=== PATIENT | male | born 1995 | race Caucasian/White ===

== ENCOUNTER 2018-04-06 17:00 | Emergency (ER) | payer SELFPAY ==
--- NOTE | 2018-04-06 17:03 | ER Report ---
History and Physical Time Seen By MD: 17:04 HPI/ROS CHIEF COMPLAINT: Depression HISTORY OF PRESENT ILLNESS: 22-year-old male patient presents to emergency room with complaint of alcohol intoxication. Patient was brought by the [facility]. Patient had been drinking excessively prior to football game and then again at the football game. He is brought in for nursing home clearance with public intoxication. Patient states that he's been having a hard time for the past year. He states that he "feels like he is not living up". 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 He denies having any difficulties with significant other. He states that he has had problems for the past year with depression and has had a couple of thoughts of suicidal ideation during that time. He states that he does not have a plan at this time. He states he would like to be admitted to behavioral health for help. REVIEW OF SYSTEMS: Respiratory: No cough, no dyspnea. Cardiovascular: No chest pain, no palpitations. Gastrointestinal: No vomiting, no abdominal pain. Musculoskeletal: No back pain. Allergies: Coded Allergies: No Known Drug Allergies (Unverified , 04/06/18) Home Meds No Active Prescriptions or Reported Meds Past Medical/Surgical History Patient has a past medical history of alcohol abuse, 9-12 beers on the weekends. Patient denies any surgical history. Reviewed Nurses Notes: Yes Hx Substance Use Disorder: No Hx Alcohol Use: Yes (9-12 ON WEEKENDS) Constitutional Vital Sign - Last 24 Hours 04/06/18 04/06/18 17:01 19:03 Temp 98.1 Pulse 100 92 Resp 14 12 B/P (MAP) 128/100 129/76 (93) Pulse Ox 94 93 O2 Delivery Room Air Room Air Physical Exam General Appearance: The patient is alert, has no immediate need for airway protection and no current signs of toxicity. Respiratory: Chest is non tender, lungs are clear to auscultation. Cardiac: regular rate and rhythm Gastrointestinal: Abdomen is soft and non tender, no masses, bowel sounds normal. Musculoskeletal: Neck: Neck is supple and non tender. Extremities have full range of motion and are non tender. Skin: No rashes or lesions. Psych: Patient maintains good eye contact, history speech is slow. At times he does become tearful. DIFFERENTIAL DIAGNOSIS: After history and physical exam differential diagnosis was considered for depression, suicidal ideation, alcohol intoxication. Medical Decision Making Data Points Result Diagram: 04/06/18 1732 04/06/18 1732 Laboratory Hematology Test 04/06/18 17:32 04/06/18 18:18 Red Blood Count 5.95 M/uL (4.00-5.60) Mean Corpuscular Volume 88.3 fL (80.0-96.0) Mean Corpuscular Hemoglobin 31.3 pg (26.0-33.0) Mean Corpuscular Hemoglobin Concent 35.5 g/dL (32.0-36.0) Red Cell Distribution Width 13.5 % (11.5-14.5) Mean Platelet Volume 9.3 fL (7.2-11.1) Neutrophils (%) (Auto) 50.0 % (39.4-72.5) Lymphocytes (%) (Auto) 42.5 % (17.6-49.6) Monocytes (%) (Auto) 5.7 % (4.1-12.4) Eosinophils (%) (Auto) 1.3 % (0.4-6.7) Basophils (%) (Auto) 0.5 % (0.3-1.4) Nucleated RBC Relative Count (auto) 0.0 /100WBC Neutrophils # (Auto) 3.4 K/uL (2.0-7.4) Lymphocytes # (Auto) 2.9 K/uL (1.3-3.6) Monocytes # (Auto) 0.4 K/uL (0.3-1.0) Eosinophils # (Auto) 0.1 K/uL (0.0-0.5) Basophils # (Auto) 0.0 K/uL (0.0-0.1) Nucleated RBC Absolute Count (auto) 0.00 K/uL Sodium Level 147 mmol/L (137-145) Potassium Level 4.1 mmol/L (3.5-5.0) Chloride Level 107 mmol/L (98-107) Carbon Dioxide Level 24 mmol/L (22-30) Blood Urea Nitrogen 14 mg/dl (9-21) Creatinine 1.20 mg/dl (0.66-1.25) Glomerular Filtration Rate Calc > 60.0 Random Glucose 102 mg/dl (75-110) Calcium Level 9.5 mg/dl (8.4-10.2) Magnesium Level 2.3 mg/dl (1.7-2.2) Total Bilirubin 0.4 mg/dl (0.2-1.3) Aspartate Amino Transf (AST/SGOT) 24 U/L (0-35) Alanine Aminotransferase (ALT/SGPT) 35 U/L (0-56) Alkaline Phosphatase 58 U/L (0-126) Total Protein 8.2 g/dl (6.3-8.2) Albumin 5.0 g/dl (3.5-5.0) Salicylates Level < 10 mg/L Salicylate Last Dose Date unk Acetaminophen Level < 10 ug/ml Serum Alcohol 222 mg/dl Urine Color Straw Urine Clarity Clear Urine pH 5.0 pH (4.8-9.5) Urine Specific [place] 1.004 Urine Protein Negative mg/dL (NEGATIVE) Urine Glucose (UA) Negative mg/dL (NEGATIVE) Urine Ketones Negative mg/dL (NEGATIVE) Urine Blood Negative (NEGATIVE) Urine Nitrite Negative (NEGATIVE) Urine Bilirubin Negative (NEGATIVE) Urine Urobilinogen Negative mg/dL (0.2-1.9) Urine Leukocyte Esterase Negative (NEGATIVE) Urine RBC None /HPF (0-2/HPF) Urine WBC None /HPF (0-5/HPF) Urine Squamous Epithelial Cells None /LPF (</=FEW) Urine Bacteria Negative /HPF (NONE-FEW) Urine Mucus None /HPF (NONE-FEW) Urine Opiates Screen Negative Urine Barbiturates Screen Negative Ur Tricyclic Antidepressants Screen Negative Urine Phencyclidine Screen Negative Urine Amphetamines Screen Negative Urine Benzodiazepines Screen Negative Urine Cocaine Screen Negative Urine Cannabinoids Screen Negative Chemistry Test 04/06/18 17:32 04/06/18 18:18 White Blood Count 6.8 k/uL (4.5-11.0) Red Blood Count 5.95 M/uL (4.00-5.60) Hemoglobin 18.6 g/dL (14.0-18.0) Hematocrit 52.5 % (42.0-52.0) Mean Corpuscular Volume 88.3 fL (80.0-96.0) Mean Corpuscular Hemoglobin 31.3 pg (26.0-33.0) Mean Corpuscular Hemoglobin Concent 35.5 g/dL (32.0-36.0) Red Cell Distribution Width 13.5 % (11.5-14.5) Platelet Count 216 K/uL (150-450) Mean Platelet Volume 9.3 fL (7.2-11.1) Neutrophils (%) (Auto) 50.0 % (39.4-72.5) Lymphocytes (%) (Auto) 42.5 % (17.6-49.6) Monocytes (%) (Auto) 5.7 % (4.1-12.4) Eosinophils (%) (Auto) 1.3 % (0.4-6.7) Basophils (%) (Auto) 0.5 % (0.3-1.4) Nucleated RBC Relative Count (auto) 0.0 /100WBC Neutrophils # (Auto) 3.4 K/uL (2.0-7.4) Lymphocytes # (Auto) 2.9 K/uL (1.3-3.6) Monocytes # (Auto) 0.4 K/uL (0.3-1.0) Eosinophils # (Auto) 0.1 K/uL (0.0-0.5) Basophils # (Auto) 0.0 K/uL (0.0-0.1) Nucleated RBC Absolute Count (auto) 0.00 K/uL Glomerular Filtration Rate Calc > 60.0 Calcium Level 9.5 mg/dl (8.4-10.2) Magnesium Level 2.3 mg/dl (1.7-2.2) Total Bilirubin 0.4 mg/dl (0.2-1.3) Aspartate Amino Transf (AST/SGOT) 24 U/L (0-35) Alanine Aminotransferase (ALT/SGPT) 35 U/L (0-56) Alkaline Phosphatase 58 U/L (0-126) Total Protein 8.2 g/dl (6.3-8.2) Albumin 5.0 g/dl (3.5-5.0) Salicylates Level < 10 mg/L Salicylate Last Dose Date unk Acetaminophen Level < 10 ug/ml Serum Alcohol 222 mg/dl Urine Color Straw Urine Clarity Clear Urine pH 5.0 pH (4.8-9.5) Urine Specific [place] 1.004 Urine Protein Negative mg/dL (NEGATIVE) Urine Glucose (UA) Negative mg/dL (NEGATIVE) Urine Ketones Negative mg/dL (NEGATIVE) Urine Blood Negative (NEGATIVE) Urine Nitrite Negative (NEGATIVE) Urine Bilirubin Negative (NEGATIVE) Urine Urobilinogen Negative mg/dL (0.2-1.9) Urine Leukocyte Esterase Negative (NEGATIVE) Urine RBC None /HPF (0-2/HPF) Urine WBC None /HPF (0-5/HPF) Urine Squamous Epithelial Cells None /LPF (</=FEW) Urine Bacteria Negative /HPF (NONE-FEW) Urine Mucus None /HPF (NONE-FEW) Urine Opiates Screen Negative Urine Barbiturates Screen Negative Ur Tricyclic Antidepressants Screen Negative Urine Phencyclidine Screen Negative Urine Amphetamines Screen Negative Urine Benzodiazepines Screen Negative Urine Cocaine Screen Negative Urine Cannabinoids Screen Negative Toxicology Test 04/06/18 17:32 04/06/18 18:18 Salicylates Level < 10 mg/L Salicylate Last Dose Date unk Acetaminophen Level < 10 ug/ml Serum Alcohol 222 mg/dl Urine Opiates Screen Negative Urine Barbiturates Screen Negative Ur Tricyclic Antidepressants Screen Negative Urine Phencyclidine Screen Negative Urine Amphetamines Screen Negative Urine Benzodiazepines Screen Negative Urine Cocaine Screen Negative Urine Cannabinoids Screen Negative Urinalysis Test 04/06/18 18:18 Urine Color Straw Urine Clarity Clear Urine pH 5.0 pH (4.8-9.5) Urine Specific [place] 1.004 Urine Protein Negative mg/dL (NEGATIVE) Urine Glucose (UA) Negative mg/dL (NEGATIVE) Urine Ketones Negative mg/dL (NEGATIVE) Urine Blood Negative (NEGATIVE) Urine Nitrite Negative (NEGATIVE) Urine Bilirubin Negative (NEGATIVE) Urine Urobilinogen Negative mg/dL (0.2-1.9) Urine Leukocyte Esterase Negative (NEGATIVE) Urine RBC None /HPF (0-2/HPF) Urine WBC None /HPF (0-5/HPF) Urine Squamous Epithelial Cells None /LPF (</=FEW) Urine Bacteria Negative /HPF (NONE-FEW) Urine Mucus None /HPF (NONE-FEW) ED Course/Re-evaluation ED Course Patient was admitted to an exam room, history and physical were obtained. Differential diagnoses were considered. On examination patient has slow rate of speech, he does maintain good eye contact. He does admit to some suicidal ideation. Lab work for a behavioral health admission were done. Those were unremarkable, patient did appear to be slightly dehydrated with slightly elevated sodium, magnesium, and appeared hemoconcentrated with elevated RBC, hemoglobin and hematocrit. I discussed the case with Dr. Frye, psychiatrist, who agreed to accept the patient for admission. We will go ahead and admit the patient to behavioral health unit. Decision to Disposition Date: Apr 06, 2018 Decision to Disposition Time: 18:53 Depart Departure Latest Vital Signs Vital Signs Date Time Temp Pulse Resp B/P (MAP) Pulse Ox O2 Delivery O2 Flow Rate FiO2 04/06/18 19:03 92 12 129/76 (93) 93 Room Air 04/06/18 17:01 98.1 Impression: Primary Impression: Depression Additional Impression: Alcohol intoxication Condition: Condition Unchanged Disposition: XFER TO [facility] New Scripts No Active Prescriptions or Reported Meds Problem Qualifiers Primary Impression: Depression Depression Type: major depressive disorder Major depression recurrence: recurrent Active/Remission status: currently active Major depression episode severity: moderate Qualified Codes: F33.1 - Major depressive disorder, recurrent, moderate Additional Impression: Alcohol intoxication Complication of substance-induced condition: uncomplicated Qualified Codes: F10.920 - Alcohol use, unspecified with intoxication, uncomplicated CHRISTOPHER ANGEL Apr 06, 2018 17:03
[2018-04-06 17:47] LABS: PLATELET COUNT, AUTOMATED 216 K/uL (150-450)
[2018-04-06 19:03] VITALS: BP 129/76
[2018-04-06] MEDS ORDERED: NICOTINE CARTRIDGE 1 EA PO PRN (19:30)
[2018-04-06] MEDS ORDERED: MAG HYD/AL HYD/SIMETH 30ML UDC PO PRN (19:30)
[2018-04-06] MEDS ORDERED: hydrOXYzine PAMOATE 25 MG CAP PO PRN (19:30)
[2018-04-06] MEDS ORDERED: NICOTINE INH SYSTEM 10 MG/INH INH PRN (19:30)
[2018-04-06] MEDS ORDERED: ACETAMINOPHEN 325 MG TAB PO PRN (19:30)
[2018-04-07] MEDS ORDERED: MULTIVITAMINS TAB PO SCH (09:00)
[2018-04-07] MEDS ORDERED: THIAMINE HCL 100 MG TAB PO SCH (09:00)
[2018-04-07] MEDS ORDERED: FOLIC ACID 1 MG TAB PO SCH (09:00)
== END 2018-04-06 19:26 ==
LOC: ER 17:06
DX: F33.1 Major depressive disorder, recurrent, moderate (principal); F10.920 Alcohol use, unspecified with intoxication, uncomplicated
CPT/HCPCS: 80305; 80320; 80329; 81001; 82040; 82247; 82310; 82374; 82435; 82565; 82947; 83735; 84075; 84132; 84155; 84295; 84443; 84450; 84460; 84520; 85025; 99284

== ENCOUNTER 2018-04-06 18:53 | Inpatient (IN) | payer SELFPAY ==
[~2018-04-06] VITALS: Ht 167.6 cm; Wt 81.6 kg
[2018-04-06] MEDS ORDERED: MAG HYD/AL HYD/SIMETH 30ML UDC PO PRN (19:40)
[2018-04-06] MEDS ORDERED: ACETAMINOPHEN 325 MG TAB PO PRN (19:40)
[2018-04-06] MEDS ORDERED: hydrOXYzine PAMOATE 25 MG CAP PO PRN (19:40)
[2018-04-06] MEDS ORDERED: NICOTINE INH SYSTEM 10 MG/INH INH PRN (19:40)
[2018-04-06] MEDS ORDERED: NICOTINE CARTRIDGE 1 EA PO PRN (19:40)
[2018-04-06 20:16] VITALS: BP 100/74
[2018-04-07 06:56] VITALS: BP 108/78
[2018-04-07] MEDS ORDERED: THIAMINE HCL 100 MG TAB PO SCH (09:00)
[2018-04-07] MEDS ORDERED: FOLIC ACID 1 MG TAB PO SCH (09:00)
[2018-04-07] MEDS ORDERED: MULTIVITAMINS TAB PO SCH (09:00)
[2018-04-07 12:17] VITALS: BP 120/98
--- NOTE | 2018-04-08 09:00 | DISCHARGE SUMMARY ---
This will serve as both the History and Physical and the Discharge Summary for this patient who was hospitalized for less than 24 hours. DATE OF ADMISSION: April 06, 2018 DATE OF DISCHARGE: April 07, 2018 The patient was interviewed for this dictation at approximately 11:15 a.m. on the morning of April 07, 2018. CHIEF COMPLAINT "I got to drinking, then I kind of blacked-out and I mentioned some suicidal thoughts". HISTORY OF PRESENT ILLNESS This is a 22-year-old man who presents as a voluntary admission after he drank 9 beers yesterday and was found by the police sitting on the sidewalk. The patient says he had blacked-out and then he got sick on the sidewalk. The police booked him and brought him to the emergency room. He was charged apparently with drunk and disorderly conduct. In the emergency room, he was presenting for senior living clearance, but he mentioned some suicidal ideation to the emergency room staff. The patient has had a number of stressors over the past year. He had mono last June when he was a carol at the [facility] [facility] and his grades suffered as a result. 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 His [facility] status is still in question. 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 He has been very down on himself and disappointed in these losses. He had been hoping to complete the ROTC program and feels ashamed when he sees former ROT colleagues on campus. He has had dysphoric mood and vague suicidal thoughts on and off over the past year, although never any plan and never any intent. He denies vegetative signs/symptoms of depression, generally he sleeps well, does get to all of his classes, does continue to socialize with his friends. PAST MENTAL HISTORY He has never had any therapy nor outpatient treatment. He has never had a suicide attempt. No history of self-harm. FAMILY PSYCHIATRIC HISTORY Negative. PAST MEDICAL HISTORY Negative. SOCIAL HISTORY The patient was born in [place] to parents who were at the time. His parents 12 years ago. His mother was an alcoholic who when the patient was [id number] of an accidental overdose of alcohol with Benzodiazepines. This was extremely stressful for the patient who was very close to his mother. He has lived with his father since then and reports a very supportive relationship. The patient did not have very good grades in high school but has had a much better GPA in college in general. 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 He is currently living with his older sister who is also a student in the nursing program at . He identifies as heterosexual and has not been in any significant long-term relationships. LEGAL HISTORY The patient is on a police hold having been charged with drunk and disorderly as above. VICTIM ISSUES The patient denies any history of physical or sexual abuse. SUBSTANCE ABUSE HISTORY The patient drinks beer and has been drinking beer since high school. He drinks approximately 3 days per week on the weekends. Usually, he drinks less than a 6-pack at a time. However, occasionally he has drank almost two 6-packs. He has had black-outs about 4 or 5 times. He denies any use of any other alcohol or any other drug abuse. PHYSICAL EXAMINATION Please see the emergency room physician's report. VITAL SIGNS: Temperature 98.6, pulse 82, respiratory rate 16, blood pressure 100/74, pulse ox is 91% on room air. LABORATORY DATA RBCs high at 5.95, hemoglobin high at 18.6, hematocrit high at 52.5, the remainder of the CBC is within normal limits. Sodium high at 147, magnesium high at 2.3, the remainder of the chemistry panel is within normal limits. TSH normal at 1.14. Tox screen was negative. Serum alcohol was 222. Urinalysis was within normal limits. MENTAL STATUS EXAM GENERAL APPEARANCE, BEHAVIOR AND ATTITUDE: The patient was well groomed, clean and cooperative with neatly trimmed hair. He displayed normal psychomotor activity with good eye contact. He appeared to tear up once or twice. SPEECH: Normal in rate, volume, and tone. MOOD/AFFECT: Depressed overall, however, he was able to smile appropriately to content several times. THOUGHT PROCESSES: Logical and goal-directed. THOUGHT CONTENT: Negative for any suicidal ideation, homicidal ideation, auditory or visual hallucinations, and delusions. COGNITION: Alert and oriented to person, place, time, and situation. MEMORY: Intact for immediate, recent and remote recall. INTELLIGENCE: Average to above average, based on interview. INSIGHT AND JUDGMENT: Good. HOSPITAL COURSE The patient seemed to benefit greatly from our interview where we discussed his recent losses and the high bar that he sets for himself. The patient indicates that he has good support from his sister and also from his father, both of whom he did contact during his brief hospital stay. The patient is highly motivated to begin therapy. The patient was willing to talk with us about the risks of alcohol, especially given the fact that his mother did suffer from an alcohol use disorder. He is motivated to pursue outpatient therapy and to take a hard look at his current beer consumption and to minimize it and/or quit entirely. 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 The patient indicates that he has good relationships with several close friends. The patient acknowledged possessing a firearm but agreed to have his friend go to the house and secure the firearm at least until he gets situated in therapy. He is motivated to continue outpatient therapy at the [facility] and he understands how to access an appointment with them when they open on Sunday. By the end of our discussion, he seemed be in a better mood and indicated that he would like to be discharged into police custody so he can finish up with whatever he needs to do because of his drunk and disorderly charge. DISCHARGE DIAGNOSES PER DSM 5 1. Adjustment disorder with depressed mood. 2. Alcohol intoxication. PLAN The patient's condition on discharge is stable. He is improved compared to on admission. He is considered a minimal risk to himself or others. He is going to be discharged into the custody of the [place] Police and after that he did contact his sister who will be home whenever he finishes up with the police. He will follow up with the [facility]. He was not placed on any medications. KONRAD
== END 2018-04-07 18:15 | DRG 881 ==
LOC: BHS 18:53
PROVIDERS: ADMIT Psychiatry & Neurology Psychiatry; ATTEND Psychiatry & Neurology Psychiatry
DX: F43.21 Adjustment disorder with depressed mood (principal); R45.851 Suicidal ideations; F10.120 Alcohol abuse with intoxication, uncomplicated; Y90.7 Blood alcohol level of 200-239 mg/100 ml; Z73.3 Stress, not elsewhere classified; Z55.3 Underachievement in school; Z81.1 Family history of alcohol abuse and dependence